=== PATIENT | male | born 1955 | race Caucasian/White ===

== ENCOUNTER 2016-08-01 06:32 | Outpatient (CLI) | payer BC ==
[~2016-08-01] VITALS: Ht 180.3 cm; Wt 120.0 kg
--- NOTE | ~2016-08-01 | HEMODYNAMI ---
PATIENT:SANTANA REYES MEDICAL RECORD: [id number] : 59 LOCATION:[facility] ADMISSION DATE: 08/01/16 Generatedon:08/01/201610:13 Patient name: SANTANA REYES Patient #: [id number] : 1955 Date of study: 08/01/2016 Page: Of Hemodynamic Procedure Report Patient Data Patient Demographics Procedure consent was obtained First Name: SANTANA Gender: Male Last Name: ERIC : 1955 Middle Initial: DAWN Age: 61 year(s) Patient #: [id number] Race: Unknown SSN: [id number] Additional ID: [id number] Contact details [address]: [address] [place] [address] ROAD State: [place] City: [place] Zip code: [address] Admission Admission Data Admission Date: 08/01/2016 Admission Time: 6:32 Arrival Date: 08/01/2016 Arrival Time: 8:30 Admit Source: Other Insurance Payor: Private health insurance Height (in.): 71 BSA: 2.37 (m2) Height (cm.): 180.34 BMI: 36.82 (kg/m2) Weight (lbs.): 264 Weight (kg.): 119.75 Lab Results Lab Result Date: 08/01/2016 Lab Result Time: 0:00 Biochemistry Name Units Result Min Max BUN mg/dl 17 --(---*)-- 7 18 Creatinine mg/dl 1.2 --(---*)-- 0.6 1.3 CBC Name Units Result Min Max Hemoglobin g/dl 14.9 --(-*--)-- 13.5 17.5 Procedure Procedure Types Cath Procedure Diagnostic Procedure C [facility] w/Coronaries Peripheral Cath Diagnostic Procedure Cath Peripheral Myhid-Hamiago-Tev-Off Procedure Description Procedure Date Procedure Date: 08/01/2016 Procedure Start Time: 9:53 Procedure End Time: 10:09 Procedure Staff Name Function Daniel Ledesma MD Performing Physician Adriano Villafana RT Scrub Pura Palmer RN Nurse Gaby العلي RT Monitor German Guerrero RT Polysilicon Preparation Worker Indication Angina Procedure Data Cath Procedure Fluoroscopy Diagnostic fluoroscopy Total fluoroscopy Time: 3.8 time: 3.8 min min Diagnostic fluoroscopy Total fluoroscopy dose: dose: 1175 mGy 1175 mGy Contrast Material Contrast Material Type Amount (ml) Isovue 370 140 Entry Location Entry Primary Successful Side Size Upsize Upsize Entry Closure Succes sful Closure Location (Fr) 1 (Fr) 2 (Fr) Remarks Device Remarks Femoral Right 5 Fr Exoseal artery Estimated blood loss: 5 ml Diagnostic catheters Device Type Used For End Catheter Placement Cordis 5Fr JL 4.0 Left Coronary Catheter (MP) Angiography Cordis 5Fr 3DRC Catheter Right Coronary (MP) Angiography Cordis Infinity 5Fr AR 1 Right Coronary MOD catheter Angiography Cordis 5Fr Pigtail LV Angiography Catheter (MP) Procedure Complications No complications Procedure Medications Medication Administration Route Dosage Oxygen NC 2 l/min Heparin Flush Bag added to field 2 bags (1000units/500ml NS) Lidocaine 2% added to field 20 Benadryl I.V. 50 mg Fentanyl I.V. 50 mcg Fentanyl I.V. 50 mcg Versed I.V. 1 mg Fentanyl I.V. 50 mcg Versed I.V. 1 mg Versed I.V. 1 mg Fentanyl I.V. 50 mcg Versed I.V. 1 mg Versed I.V. 1 mg Hemodynamics Rest BSA: 2.37 (m2) HGB: 14.9 (g/dl) O2 Consumption: Estimated: 280.76 (ml/min) O2 Co nsumption indexed: Estimated:118.46 (ml/min/m) Heart Rate: 72 (bpm) Pressure Samples Time Site Value (mmHg) Purpose Heart Use Rate(bpm) 10:04 LV 95/-5,0 Snapshot 65 10:05 AO 85/53(70) Pullback 67 10:05 LV 120/15,28 Pullback 67 Gradients Valve Time Site 1 Site 2 Mean SEP/DFP Peak To Heart Use (mmHg) (sec/min) Peak Rate (mmHg) (bpm) Aortic 10:05 LV AO 23 19 35 67 120/15,28 85/53(70) Calculations Valve P-P Mean Valve Index Valve Source Name Gradient Area Flow (cm2) Aortic 35 23 35 23 Snapshots Pre Cath Intra NCS Post Cath Vital Signs Time Heart Resp SPO2 NIBP (mmHg) Rhythm Pain Status Sedation Rate (ipm) (%) Level (bpm) 9:06:01 67 16 99 143/99(120) NSR 0 (11) , No 10(A) pain 9:10:17 65 16 100 144/102(123) NSR 0 (11) , No 10(A) pain 9:14:35 67 16 99 135/88(113) NSR 4 (11) , 10(A) Distressing 9:18:49 65 16 98 133/89(108) NSR 3 (11) , 10(A) Tolerable 9:22:59 64 16 97 133/86(103) NSR 0 (11) , No 10(A) pain 9:27:10 61 18 98 132/98(112) NSR 0 (11) , No 10(A) pain 9:32:05 62 18 98 139/95(115) NSR 0 (11) , No 10(A) pain 9:36:23 62 16 96 134/80(113) NSR 0 (11) , No 10(A) pain 9:40:37 67 16 96 136/87(116) NSR 0 (11) , No 10(A) pain 9:44:49 66 16 95 138/88(120) NSR 0 (11) , No 10(A) pain 9:49:09 66 16 94 127/77(96) NSR 0 (11) , No 10(A) pain 9:53:21 63 16 96 143/81(103) NSR 0 (11) , No 10(A) pain 9:57:41 66 16 95 137/78(104) NSR 0 (11) , No 10(A) pain 10:01:51 66 16 97 134/95(112) NSR 0 (11) , No 9(A) pain 10:06:10 73 16 97 136/76(113) NSR 0 (11) , No 9(A) pain 10:10:24 71 16 99 116/92(109) NSR 0 (11) , No 9(A) pain Medications Time Medication Route Dose Verified Delivered Reason Notes Effect iveness by by 9:07:52 Oxygen NC 2 Daniel Pura Per l/min Baltazar Palmer RN physician 9:08:00 Heparin Flush added 2 Daniel Daniel used for Bag to bags Baltazar Ledesma MD procedure (1000units/500ml field NS) 9:08:06 Lidocaine 2% added 20ml Daniel Daniel used for to vial Baltazar Ledesma MD procedure field 9:08:14 Benadryl I.V. 50 mg Daniel Pura Per Baltazar Palmer RN physician 9:17:22 Fentanyl I.V. 50 Daniel Pura for back mcg Baltazar Palmer RN pain 9:20:03 Fentanyl I.V. 50 Daniel Pura for back mcg Baltazar Palmer RN pain 9:44:52 Versed I.V. 1 mg Daniel Pura for Baltazar Palmer RN sedation 9:45:00 Fentanyl I.V. 50 Daniel Pura for mcg Baltazar Palmer RN sedation 9:47:57 Versed I.V. 1 mg Daniel Pura for Baltazar Palmer RN sedation 9:50:12 Versed I.V. 1 mg Daniel Pura for Baltazar Palmer RN sedation 9:52:40 Fentanyl I.V. 50 Daniel Pura for mcg Baltazar Palmer RN sedation 9:52:49 Versed I.V. 1 mg Daniel Pura for Baltazar Palmer RN sedation 9:57:38 Versed I.V. 1 mg Daniel Pura for Baltazar Palmer RN sedation Procedure Log Time Note 8:50:05 Pura Estela RN sent for patient. Start room use. 8:59:22 Diagnostic Cath Status : Elective 8:59:44 Indication : Angina 9:00:14 Time tracking: Regular hours 9:00:18 Plan of Care:Hemodynamics will remain stable., Cardiac rhythm will remain stable., Comfort level will be maintained., Respiratory function will remain adequate., Patient/ family verbilizes understanding of procedure., Procedure tolerated without complication., Recovers from procedure without complications.. 9:00:23 Patient received from Outpatients to [facility] 1 Alert and oriented. Tansferred to table in Supine position. 9:00:23 Warm blankets applied, and carlin hugger turned on for patient comfort. 9:00:24 Correct patient and procedure confirmed by team. 9:00:26 Signed procedure consent form obtained from patient. 9:00:26 ECG and BP/O2 sat monitors applied to patient. 9:04:55 Vital chart was started 9:04:57 Baseline sample Acquired. 9:04:58 Full Disclosure recording started 9:07:52 Oxygen 2 l/min NC was given by Pura Palmer RN; Per physician; 9:08:00 Heparin Flush Bag (1000units/500ml NS) 2 bags added to field was given by Daniel Ledesma MD; used for procedure; 9:08:06 Lidocaine 2% 20ml vial added to field was given by Daniel Ledesma MD; used for procedure; 9:08:14 Benadryl 50 mg I.V. was given by Pura Palmer RN; Per physician; 9:12:40 Baseline sample Acquired. 9:12:44 Rhythm: sinus rhythm 9:14:27 H&P Date Dictated: 07/26/2016 Within 30 days and on chart., H&P Addendum completed by physician on day of procedure. (MUST COMPLETE FOR ALL OUTPATIENTS). 9:14:28 Pre-procedure instructions explained to patient. 9:14:29 Pre-op teaching completed and patient verbalized understanding. 9:14:30 Family in waiting room. 9:14:31 Patient NPO since Midnight. 9:14:41 Is the patient allergic to Iodine/contrast media? No. 9:14:42 Was the patient premedicated? No 9:15:02 Is patient on blood thinner?No 9:15:05 Patient diabetic? No. 9:15:08 Previous problem with sedation/anesthesia? No ? 9:15:12 Snore? Yes 9:15:13 Sleep apnea? Yes 9:15:14 Deviated septum? No 9:15:15 Opens mouth fully? No 9:15:16 Sticks out tongue? Yes 9:15:20 Airway obstruction? Yes ? 9:15:22 Airway obstruction? No ? 9:15:24 Dentures? No ? 9:15:29 Pre procedure: right dorsailis pedis pulse 1+ Palpable, but thready & weak; easily obliterated 9:15:31 Patient pain scale 0/10 ?. 9:15:37 IV patent on arrival in left forearm with 0.9% NaCl at KVO. 9:15:59 Lab Result : BUN 17 mg/dl 9:15:59 Lab Result : Hemoglobin 14.9 g/dl 9:15:59 Lab Result : Creatinine 1.2 mg/dl 9:16:13 Lab results completed and on chart. 9:16:17 Bilateral groins area was prepped with chlora-prep and draped in sterile fashion 9:16:19 Alarms reviewed by R. N. 9:16:19 Sharps counted by scrub and verified by R.N. 9:17:22 Fentanyl 50 mcg I.V. was given by Pura Palmer RN; for back pain; 9:17:58 Admit Source: Other 9:18:05 Patient Height : 180.34 cm 9:18:12 Patient Weight : 119.75 kg 9:18:13 Arrival Date: 08/01/2016 8:30:00 AM 9:18:19 Insurance Payor : Private health insurance 9:20:03 Fentanyl 50 mcg I.V. was given by Pura Palmer RN; for back pain; 9:44:09 Physician arrived 9:44:09 --------ALL STOP TIME OUT------ 9:44:10 Final Timeout: patient, procedure, and site verified with staff and physician. All members of the team are in agreement. 9:44:12 Bilateral groins site verified by team. 9:44:17 Physical assessment completed. ASA score P 2 - A patient with mild systemic disease as per Daniel Ledesma MD. 9:44:20 Sedation plan: IV Moderate Sedation Versed, Fentanyl 9:44:52 Versed 1 mg I.V. was given by Pura Palmer RN; for sedation; 9:45:00 Fentanyl 50 mcg I.V. was given by Pura Palmer RN; for sedation; 9:47:57 Versed 1 mg I.V. was given by Pura Palmer RN; for sedation; 9:48:55 Use device set Femoral Dx 9:48:56 Acist Syringe opened to sterile field. 9:48:57 Bag Decanter opened to sterile field. 9:48:57 Cardinal Cath Pack opened to sterile field. 9:48:58 Terumo 5Fr [place] Sheath opened to sterile field. 9:48:58 St Doug 260cm J .035 wire opened to sterile field. 9:48:59 Acist Hand Control opened to sterile field. 9:49:00 Acist Manifold opened to sterile field. 9:49:00 Cordis Infinity 5Fr Multipack catheter opened to sterile field. 9:49:03 Tegaderm 4 x 4 opened to sterile field. 9:50:12 Versed 1 mg I.V. was given by Pura Palmer RN; for sedation; 9:52:40 Fentanyl 50 mcg I.V. was given by Pura Palmer RN; for sedation; 9:52:41 Procedure started. 9:52:49 Versed 1 mg I.V. was given by Pura Palmer RN; for sedation; 9:53:11 Local anesthetic to right femoral artery with Lidocaine 2% by Daniel Ledesma MD.INITIAL ACCESS ONLY 9:55:08 A 5 Fr sheath was inserted into the Right Femoral artery 9:57:08 A Cordis 5Fr JL 4.0 Catheter (MP) was advanced over the wire and used for Left Coronary Angiography. 9:57:26 LCA angiography performed. 9:57:29 Injector settings: Ml/sec: 3, Volume: 6, 9:57:38 Versed 1 mg I.V. was given by Pura Palmer RN; for sedation; 9:59:35 St Doug 260cm J .035 wire opened to sterile field. 9:59:38 Catheter removed. 9:59:44 A Cordis 5Fr 3DRC Catheter (MP) was advanced over the wire and used for Right Coronary Angiography. 10:01:45 Catheter removed. unable to cannulate vessel. 10:02:46 A Cordis Infinity 5Fr AR 1 MOD catheter was advanced over the wire and used for Right Coronary Angiography. 10:03:32 RCA angiography performed. 10:03:35 Injector settings: Ml/sec: 3, Volume: 6, 10:03:37 Catheter removed. 10:03:43 A Cordis 5Fr Pigtail Catheter (MP) was advanced over the wire and used for LV Angiography. 10:04:58 LV hemodynamics recorded. 10:04:59 LV gram done using BARKER 10:05:02 Injector settings: Ml/sec: 5, Volume: 15, 10:05:07 EF : 55 % 10:05:37 Abdominal angiogram w/ runoff was performed. 10:07:38 Catheter removed. 10:08:03 Cordis 5Fr Exoseal opened to sterile field. 10:08:13 Sheath removed intact; hemostasis achieved with Exoseal to the Right Femoral artery. 10:08:15 Procedure ended.(Physican Out) 10:08:48 Fluoroscopy time 03.80 minutes. 10:09:01 Flurop Dose total: 1175 10:09:01 Fluoroscopy dose: 1175 mGy 10:09:05 Contrast amount:Isovue 370 140ml. 10:09:07 Sharps counted by scrub and verified by R.N. 10:09:08 Insertion/operative site no bleeding no hematoma. 10:09:10 Post-op/insertion site Right Femoral artery dressed using a 4 x 4 and Tegaderm. 10:09:13 Post right femoral artery:stable 10:09:14 Post Procedure Pulses reassessed and unchanged 10:09:17 Post procedure rhythm: unchanged. 10:09:19 Estimated blood loss: 5 ml 10:09:21 Post procedure instruction explained to patient.Patient verbalizes understanding. 10:09:21 Patient needs reinforcement of post procedure teaching. 10:09:31 Procedure and supply charges have been captured, reviewed, submitted and are correct. 10:09:35 Procedure Complication : No complications 10:09:37 Vital chart was stopped 10:09:38 See physician's report for complete and final results. 10:09:40 Report given to Post Procedure Room. 10:09:43 Patient transfered to Post Procedure Room with Stretcher. 10:09:46 Procedure ended. 10:09:46 Full Disclosure recording stopped 10:10:10 End room use (Document Last) Device Usage Item Name Manufacture Quantity Catalog Hospital Part Current Minimal Lo t# / Number Charge Number Stock Stock Serial# Code Acist Acist 1 12301 [id number] [id number] [id number] 20 Syringe [employer] Bag Microtek 1 2002S 572440 21547 408478 5 Decan[employer] Cardinal Cardinal [address] 462776 91610 880121 5 Swidjit [facility] 1 [id number] 526572 660747 825617 [address] [place] [address] Doug 2 662672 620931 010733 751427 30 260cm J .035 wire Acist Acist 1 96762 302253 396426 622319 5 Hand [employer] Inc Acist Acist 1 44617 680435 717365 944138 5 Manifold [employer] Cordis Cardinal 1 [id number] 790389 02739 372835 30 Deposcoity Health 5Fr Multipack catheter Tegaderm 3M 1 1626W 844627 969838 120280 5 4 x 4 Cordis Cardinal 1 071026 5 5Fr Health 4.0 Catheter (MP) Cordis Cardinal 1 095657 5 5Fr 3DRC Health Catheter (MP) Cordis Cardinal 1 [id number] 204237 636169 4722475 15 Beacon Reader 5Fr AR 1 MOD catheter Cordis Cardinal 1 [id number] 5 5Fr Health Pigtail Catheter (MP) Cordis Cardinal 1 EX500 815768 378732 766981 10 5Fr Health Exoseal Signature Audit Burns Stage Time Signature Unsigned Intra-Procedure 08/01/2016 Gaby العلي 10:13:03 AM RT(R) Signatures Monitor : Gaby العلي RT Signature : Date : Time : [facility] [address], [place] [address]
[2016-08-01 07:08] LABS: BASOPHILS 0.3 % (0.0-2.0); EOSINOPHILS 2.7 % (0-7); HEMATOCRIT 43.3 % (42.0-54.0); HEMOGLOBIN 14.9 g/dL (13.5-17.5); IMMATURE GRANULOCYTES 0.1 % (0-5); LYMPHOCYTES 31.4 % (15-50); MCH 28.2 pg (26.0-34.0); MCHC 34.4 g/dL (31.0-37.0); MEAN PLATELET VOLUME 12.3 fL (7.4-10.4); MONOCYTES 4.6 % (2-11); NEUTROPHILS 60.9 % (40-80); PLATELET COUNT 191 10x3/uL (130-400); RBC 5.28 10x6/uL (4.20-6.10); RDW 13.2 % (11.5-14.5); WBC 6.9 10x3/uL (4.8-10.8)
[2016-08-01 07:25] LABS: ANION GAP 14.1 mmol/L (8-16); CALCIUM 9.4 mg/dL (8.5-10.1); CREATININE - SERUM 1.2 mg/dL (0.6-1.3); POTASSIUM - SERUM 4.1 mmol/L (3.5-5.1)
[2016-08-01] MEDS ORDERED: MOBIC7.5 MG PO (07:35)
[2016-08-01] MEDS ORDERED: ATIVAN0.5 MG PO (07:35)
[2016-08-01] MEDS ORDERED: BAYER CHEWABLE81 MG PO (07:36)
[2016-08-01] MEDS ORDERED: ULTRAM50 MG PO (07:36)
[2016-08-01] MEDS ORDERED: LEXAPRO10 MG PO (07:36)
[2016-08-01 07:41] VITALS: BP 127/87; Ht 180.3 cm; Wt 120.0 kg
--- NOTE | 2016-08-01 10:50 | NUR ---
1035 SLEEPING, ROOM AIR. NSR RATE 69 WNO C/O CHEST PAIN. PULSES PALP X 4. R GROIN 5F EXOSEAL C/D/I. FAMILY AT BEDSIDE.
--- NOTE | 2016-08-01 11:30 | NUR ---
1130 NO DISTRESS NOTED CHEST PAIN DENIED HR 61 BP 123/79 5 FR EXOSEAL R/GROIN CDI NO BLEEDING NO HEMATOMA NOTED WILL MONITOR
--- NOTE | 2016-08-01 12:45 | NUR ---
1230 ELEVATED HOB, SITTING UP EATING TURKEY SANDWICH. VITALS ALL WNL. WILL MONITOR R GROIN FOR BLEEDING.
--- NOTE | 2016-08-01 13:06 | NUR ---
PIV REMOVED FROM LEFT HAND WITH BANDAID APPLIED. UP TO BEDSIDE TO DRESS WITH ASSIST FROM .
--- NOTE | 2016-08-01 13:10 | NUR ---
D/C INSTRUCTIONS DISCUSSED WITH PATIENT AND AT BEDSIDE. BOTH VERBALIZED UNDERSTANDING. WHEELED DOWN VIA WHEELCHAIR BY CATH TEAM.
--- NOTE | 2016-08-05 15:45 | OP ---
PATIENT NAME: SANTANA REYES MEDICAL RECORD: [id number] :59 LOCATION:[facility] ADMISSION DATE: SURGEON: TREVOR ESCOBEDO M.D. DATE OF OPERATION: 08/01/2016 PROCEDURES PERFORMED: 1. Selective coronary angiography. 2. Left heart catheterization with ventriculogram. 3. Aortofemoral runoff. INDICATION: A 61-year-old gentleman presents with symptoms of lifestyle limiting claudication. He has been having symptoms of angina. EQUIPMENT USED: A 5-Syrian JL4, Fred right, pigtail catheter. REFERRING PHYSICIAN: Dr. Carlos Kendall at [place], [place]. TECHNIQUE: A 5-Syrian sheath was inserted in retrograde fashion in the right common femoral artery. Next, selective coronary angiography was performed in standard 5-Syrian JL4 and Fred right. Left heart catheterization, we used a pigtail catheter. Next, the pigtail catheter pulled down to the level of T12. Power injection was performed to visualize the distal aorta. Next, the catheter was pulled down at the level of bifurcation and aortofemoral runoff was then performed visualizing both lower extremities. CORONARY ANATOMY: 1. Left main: Left main trunk is moderate in caliber. It gives rise to the LAD and circumflex. It is widely patent. 2. LAD: This is a moderate caliber vessel extending to the apex. It gives rise to a moderate caliber diagonal proximal segment. The LAD and diagonal are smooth-walled vessels and angiographically normal. 3. Circumflex: This vessel is moderate in caliber. It provides the lateral branch in mid segment. The circumflex and lateral branch are angiographically normal. 4. Right coronary: This vessel actually arises from the noncoronary cusp. It is large in caliber and dominant. It is a smooth-walled vessel and angiographically normal. 5. Left ventricle: Left ventricle is normal in size and function. No wall motion abnormalities are seen. Estimated ejection fraction is 55%. AORTOFEMORAL RUNOFF: The distal aorta is of good caliber. It is widely patent. There is no evidence of any stenosis or aneurysm. Each kidney receives a single arterial supply. There is no evidence of renal artery stenosis. The right common iliac artery is large in caliber and widely patent. The right external iliac is large in caliber and widely patent. The right common femoral artery is large in caliber and widely patent. Right superficial artery is large in caliber and widely patent. Right popliteal artery is large in caliber and widely patent. Below the knee, there appears to be 3-vessel runoff and all vessels are widely patent. Left common iliac artery is large in caliber and widely patent. Left external iliac artery is large in caliber and widely patent. Left common femoral artery is large in caliber and widely patent. Left superficial artery is large in caliber and widely patent. Left popliteal artery is large in caliber and widely OPERATIVE REPORT [id number] ERICSANTANA DAWN patent. Below the knee, there appears to be a 3-vessel runoff and all vessels are widely patent. IMPRESSION: 1. Normal coronary arteries. 2. Normal left ventricular function. 3. Normal aortofemoral runoff. RECOMMENDATIONS: I suspect his claudication is likely referred pain from his back. He has no evidence of any peripheral vascular disease. We will continue with medical management. TRANSINT:[id number] Voice Confirmation ID: [id number] DOCUMENT ID: [id number] TREVOR ESCOBEDO M.D. at 1545 CC: [id number] DICTATION DATE: 08/01/16 1016 GLOBAL POSITION SYSTEM TECHNICIAN: 08/01/16 1224 DEP CLI 08/01/16 [facility] [address] [place] [address]
== END 2016-08-01 13:11 | disposition home or self-care (01) ==
LOC: D.CATH 06:32
PROVIDERS: Internal Medicine Cardiovascular Disease
DX: I20.9 Angina pectoris, unspecified (principal); I73.9 Peripheral vascular disease, unspecified